=== PATIENT | male | born 1975 | race Caucasian/White ===

== ENCOUNTER 2017-11-17 09:19 | Day surgery (SDC) | payer OTHER, SELFPAY ==
[2017-11-17] VITALS (8 sets, daily range): BP systolic 91–116; BP diastolic 57–70; PULSE 49–70; RESP 16; TEMP 35.9–36.6; O2SAT 97–100; BMI 20.7
--- NOTE | 2017-11-17 09:27 | EKG12_ITS ---
Test Reason : PRE-OP Blood Pressure : / mmHG Vent. Rate : 073 BPM Atrial Rate : 073 BPM P-R Int : 136 ms QRS Dur : 084 ms QT Int : 370 ms P-R-T Axes : 062 068 054 degrees QTc Int : 407 ms Normal sinus rhythm Normal ECG Confirmed by JORJE SANCHEZ, ZANDRA ([id number]), content editor AFSANEH IBARRA ([id number]) on 11/24/2017 1:04:38 PM Referred By: Fan Montes Confirmed By:ZANDRA RECINOS MD
[2017-11-17 09:45] LABS: Hematocrit 42.2 % (40-54); Hemoglobin 13.7 g/dl (13.0-16.5); Mean Corp Hgb Conc 32.5 g/gl (32-36); Mean Corpuscular Hgb 33.3 pg (27.0-32.0); Mean Corpuscular Volume 102.4 fL (80-94); Mean Platelet Vol. 8.7 fl (6.2-12.0); Platelet Count 301 K/mm3 (150-450); RBC Distribution Width CV 11.5 % (11.6-14.6); Red Blood Count 4.12 M/mm3 (4.6-6.2); White Blood Count 7.4 K/mm3 (4.4-11.0)
[2017-11-17 09:46] LABS: Scan Indicated on CBC? Y/N NO
[2017-11-17 09:59] LABS: Anion Gap 5 (5-15); BUN 11 mg/dL (7-18); BUN/Creat Ratio 13.7 RATIO (10-20); Calcium,Total 9.1 mg/dL (8.5-10.1); Chloride 107 mmol/L (98-107); EST Glomerular Filtration Rate 113 mL/min (>60); Est Glom Filt Rate - Afr Amer 136 mL/min (>60); Estimated Creatinine Clearance 112.41 ml/min; Glucose 87 mg/dL (74-106); Sodium Level 141 mmol/L (136-145)
[2017-11-17] MEDS: Bupivacaine Mpf 0.5% 30 ML VIAL (10:19)
[2017-11-17] MEDS: Cefazolin 2 GM in 0.9% Normal Saline 100 ML IV (10:54)
--- NOTE | 2017-11-17 11:02 | PCM.DC.GS ---
Discharge Diet: Light diet - advance as tolerated - if you have questions about your diet instructions, please talk to you doctor. Discharge Activity: May Not Drive - for 1 week or while taking narcotic pain medicine. May shower in (days): 1 Lifting Restrictions: 10 pounds Call your doctor if your incision/area has: Continuous Slow Oozing, Sudden Increased Bleeding, Increased Pain/ Swelling, Increased Redness, Foul Smelling Discharge Call your doctor if you observe: Fever of 101 or Higher Suture Line Care: Avoid Pulling/Pushing, Avoid Pinching/Bending Additional Dressing/Incision Instructions:: Change or remove dressing in 4 days. Leave steri-strips in place for 1 week. Allergies/Adverse Reactions: Allergies No Known Allergies Allergy (Verified 11/11/17 10:46) Medications to take at Discharge NK [NK] 11/11/17 Primary Care Physician: Manolo Fabian MD [Primary Care Provider] - Please Follow Up With: Fan Montes MD - [phone] When: Further office appointments may be as needed.
--- NOTE | 2017-11-17 11:39 | RAD_ITS ---
STUDY: X-RAY CHEST REASON FOR EXAM: Male, 42 years old. Port placement. TECHNIQUE: Single AP portable view of the chest. COMPARISON: None. FINDINGS: A right-sided portacatheter has been placed. The tip is at the junction of the superior vena cava and right atrium. The lungs are clear and expanded. There is no demonstrated pleural abnormality. Normal size heart. Normal mediastinum and jasmin. Normal visualized pulmonary arteries. Normal visualized aortic arch and descending thoracic aorta. Normal visualized thoracic spine. Normal visualized ribs, clavicles, and shoulders. There is no demonstrated abnormality of the visualized soft tissue structures of the upper abdomen. RAD/CXR for Line Placement IMPRESSION: Of the right linda catheter is at the junction of the superior vena cava and right atrium. Electronically Signed: Juan Penn MD at 12:34 EDT Tel [phone], Service support ,
--- NOTE | 2017-11-17 11:44 | OP.PCM_ITS ---
Problem List (1) Rectal cancer Status: Acute Report of Operation Date of Procedure: 11/17/17 Pre-Operative Diagnosis: Rectal cancer Post-Operative Diagnosis: Same Surgery/Procedure Performed:: Right internal jugular 6 [place] PowerPort placement Description of Surgical Findings:: Timeout and informed consent was obtained. 42-year-old gent was taken to the operating room. Placed on the table. The right neck and chest were sterilely prepped and draped. Ancef 2 g given intravenous preoperatively. He underwent monitored anesthesia care. 1% lidocaine mixed 50-50 with 0.5% Marcaine was used as a local anesthetic. Under ultrasound guidance local was instilled in the right neck. Micropuncture needle was used to gain access to the right internal jugular vein. Seldinger wire advancement. Local was instilled down upon the chest wall. Transverse incision was created. Subtenons pocket was created with electrocautery. The tubing was tunneled from the chest to the neck site. Then the micropuncture sheath dilator was placed over the wire. 035 J-wire was inserted. Fluoroscopy demonstrated good positioning. The sheath dilator was placed over the wire. The dilator and wire were removed. The catheter was advanced to the sheath. The sheath was split. The catheter was positioned at the SVC atrial junction. It was amputated to length and connected to the port secured with a port attachment device. The port was placed in the pocket and secured there with interrupted 2-0 silk. The port site was closed with interrupted 3-0 Vicryl subdermal stitches. The neck was closed with interrupted 5-0 Vicryl subdermal stitches. Steri-Strips Telfa OpSite dressings applied. The port was accessed. It aspirated easily and it was flushed with 2 cc of heparinized saline. Sponge, instrument, needle counts were reported to the surgeon to be correct. Blood loss was minimal. He tolerated the procedure well was taken to the recovery area in satisfactory condition without apparent complication. Stat portable chest is pending. No apparent complications Fan Montes M.D., F.A.C.S. Type of Anesthesia:: Local MAC Anesthesiologist: Albertina Louis
== END 2017-11-17 13:15 | disposition home or self-care (01) ==
LOC: SDC 09:20 → AC 09:21
PROVIDERS: Family Provider Internal Medicine; PCP Internal Medicine; Visit Provider Surgery
PROC: (CPT 36571; principal; 2017-11-17 10:45)
DX: C20 Malignant neoplasm of rectum (principal); F17.200 Nicotine dependence, unspecified, uncomplicated; K21.9 Gastro-esophageal reflux disease without esophagitis; Z90.49 Acquired absence of other specified parts of digestive tract; Z87.442 Personal history of urinary calculi
CPT/HCPCS: 00532; 36571; 36415; 71045; 77001; 80048; 85027; 93005; J7120; C1788

== ENCOUNTER 2020-05-06 20:54 | Observation (INO) | payer OTHER, SELFPAY ==
[2020-05-06 20:55] VITALS: BP 134/80; PULSE 67; RESP 16; TEMP 36.2; O2SAT 99; BMI 24.0
--- NOTE | 2020-05-06 21:09 | CT_ITS ---
STUDY: CT ABDOMEN AND PELVIS WITH CONTRAST REASON FOR EXAM: Male, 44 years old. MID ABDOMEN PAIN AND CHILLS -- HX:GERD,RECTAL CANCER WITH RECTAL RESECTION AND COLOSTOMY RADIATION DOSAGE (If Supplied By Facility): CTDIvol = ( 13.88 ) mGy, DLP = ( 645.12 ) mGycm TECHNIQUE: Transaxial images were obtained from the dome of the diaphragm to the symphysis pubis without oral contrast. IV 100mL Isovue-370 was administered. Sagittal and coronal images were reconstructed. Individualized dose optimization techniques were used for this CT. COMPARISON: 06/10/2017 FINDINGS: Right lower lobe granuloma. The visualized portions of the heart are within normal limits. Normal liver. Normal gallbladder and extrahepatic biliary system. Granulomatous calcifications in the spleen. Normal pancreas. Normal bilateral adrenal glands. Normal right kidney. Normal left kidney. Distended stomach with air-fluid level. Dilated proximal small intestine with obstruction. Normal colon. The appendix is not visualized. Normal abdominal aorta. Normal inferior vena cava. Normal retroperitoneum. Normal urinary bladder. Mild pelvic fluid. There is a colostomy in the left anterior abdominal wall. Small fatty umbilical hernia. Normal osseous structures. CT/Abdomen/Pelvis W IV Cont ONLY IMPRESSION: Small bowel obstruction. There is a colostomy through the left anterior abdominal wall. Mild pelvic fluid. Electronically Signed: Lincoln Krishnamurthy DO at 23:04 EDT Tel [phone], Service support ,
--- NOTE | 2020-05-06 21:12 | ED.VIS.GEN ---
History of Present Illness Chief Complaint: Abd Pain Informant: Patient Narrative: Patient is a 44-year-old male with a past medical history of rectal cancer status post removal with colostomy who presents to the emergency department for midline abdominal pain. This has been present since noon today. Currently rates the pain as a 7 out of 10. He tried taking multiple doses of Pepcid for this which did not give any relief he denies ever experiencing this before in the past. No radiation of the symptoms to the back. He did get nauseous but no episodes of vomiting. No change in output from his stoma. He denies any urinary symptoms. He has had some intermittent chills but denies any known fever. No associated chest pain or shortness of breath. No other abdominal surgeries. Does not take any other medications. Past Medical History - Allergies and Home Meds Allergies/Adverse Reactions: Allergies No Known Allergies Allergy (Verified 05/31/18 13:04) Primary Care Physician: Manolo Fabian MD [Primary Care Provider] - Prior records reviewed: Yes Surgical History: - - Rectal cancer resection with colostomy Smoking Status: Current every day smoker Review of Systems All systems negative except as indicated General: Reports: Chills. Denies: Fever, Sweats Eyes: Denies: Visual changes - bilaterally, Diplopia ENT: Denies: Rhinorrhea, Sore throat Cardiovascular: Denies: Chest pain, Palpitations Respiratory: Denies: Dyspnea, Cough, Dyspnea on exertion Gastrointestinal: Reports: Abdominal pain, Nausea. Denies: Vomiting, Diarrhea, Melena, Hematochezia Genitourinary: Denies: Dysuria, Hematuria, Frequency Musculoskeletal: Denies: Back pain, Extremity Pain Skin: Denies: Rash, Wounds Neurological: Denies: Headache, Weakness, Numbness Physical Exam Vital Signs/Narrative: Vital Signs Temp Pulse Resp BP Pulse Ox 05/06/20 20:55 97.1 F L 67 16 134/80 H 99 Inital Vital Signs reviewed: Yes General: Well nourished, Well developed, No Acute Distress Head: Normocephalic, Atraumatic Eyes: Perrl, EOMI ENT: Moist mucous membranes, No rhinorrhea Neck: Supple, Nontender Cardiovascular: Regular rate, Regular rhythm, No murmurs Respiratory: No distress, CTA bilaterally, Chest nontender Abdomen: Soft, Nondistended, Normal bowel sounds, Tender - Midline tenderness to light and deep palpation. Stoma does appear healthy. Brown stool present in colostomy. Back: Nontender, Normal Inspection. Negative for: CVA tenderness Extremities: Nontender, No edema Skin: Normal color, No rash Neurological: Alert, Oriented x3, Normal Strength, Normal Sensation Psychological: Normal affect, Normal Mood Diagnostic/Tx/Re-eval - Medical Decision Making Patient presents to the emergency department for abdominal pain. He does have a history of colostomy. Upon arrival to the emergency department vital signs within normal limits. He does not appear in any acute distress. Will check basic lab work and CT scan of the abdomen/pelvis. We will give a dose of morphine for symptomatic treatment. Patient's lab work did not reveal any significant acute abnormality. CT scan of the abdomen/pelvis is currently pending. Patient signed out due to end of shift. Based on CT findings we will plan on disposition. He otherwise has been stable throughout ED stay. ED Disposition - Plan for ED Patient: Diagnosis: Abdominal pain Referrals: Manolo Fabian MD [Primary Care Provider] -
[2020-05-06] MEDS: 0.9% Normal Saline 1,000 ML 999 ML IV (21:34)
[2020-05-06] MEDS: Morphine 4 MG/ML Syringe IV ×2 (21:36→23:38)
[2020-05-06 21:48] LABS: Absolute Lymphocyte Count 0.56 X10^3/uL (0.83-4.51); Absolute Neutrophil Count 8.6 X10^3/uL (2.0-7.7); Basophil# 0.02 X10^3/uL; Basophil% 0.2 % (0-1); Eosinophil# 0.03 X10^3/uL; Eosinophils% 0.3 % (0-5); Hematocrit 44.2 % (40-54); Hemoglobin 15.1 g/dL (13.0-16.5); Lymphocyte # 0.56 X10^3/ul (4.0); Lymphocyte % 5.8 % (19-41); Mean Corp Hgb Conc 34.2 g/dL (32-36); Mean Corpuscular Hgb 32.1 pg (27.0-32.0); Mean Corpuscular Volume 93.8 fL (80-94); Mean Platelet Vol. 8.6 fl (6.2-12.0); Monocyte# 0.43 X10^3/uL; Monocyte% 4.5 % (0-10); NRBC Flagged by Analyzer 0 % (0-5); Neutrophil # 8.57 X10^3/uL (2.7-7.7); Neutrophil % 88.8 % (47-70); POSITIVE DIFFERENTIAL YES; Platelet Count 241 K/mm3 (150-450); RBC Distribution Width CV 11.4 % (11.6-14.6); RBC Distribution Width SD 39.5 fl (35.1-43.9); Red Blood Count 4.71 M/mm3 (4.6-6.2); White Blood Count 9.7 K/mm3 (4.4-11.0)
[2020-05-06 22:06] LABS: AST(SGOT) 13 U/L (15-37); Alanine Aminotransfer ALT/SGPT 20 U/L (16-61); Alkaline Phosphatase 82 U/L (45-117); Anion Gap 6 (5-15); BUN 15 mg/dL (7-18); BUN/Creat Ratio 16.5 RATIO (10-20); Calcium,Total 9.7 mg/dL (8.5-10.1); Chloride 105 mmol/L (98-107); Creatinine, Serum 0.91 mg/dL (0.70-1.30); EST Glomerular Filtration Rate 97 mL/min (>60); Est Glom Filt Rate - Afr Amer 117 mL/min (>60); Estimated Creatinine Clearance 108.07 ml/min; Globulin 3.9 g/dL (2.2-4.2); Glucose 130 mg/dL (74-106); Lipase 71 U/L (73-393); Potassium 3.6 mmol/L (3.5-5.1); Protein, Total 7.9 g/dL (6.4-8.2); Sodium Level 140 mmol/L (136-145)
[2020-05-06 22:13] LABS: Differential Indicated SCAN CRITERIA MET
[2020-05-06 22:14] LABS: Anisocytosis RARE; Macrocytosis RARE; Platelet Estimate ADEQUATE (ADEQ); Red Cell Morphology N CHROM NORMAL (NORM C&C)
[2020-05-06 22:24] VITALS: BP 124/84; PULSE 60; RESP 16; O2SAT 97
--- NOTE | 2020-05-06 23:24 | RAD_ITS ---
HISTORY: NG tube insertion. Small bowel obstruction EXAMINATION/TECHNIQUE: XR Abdomen 1 View: Portable COMPARISON: CT abdomen and pelvis 05/06/2020 FINDINGS: Single upright view of the lower chest and upper abdomen. The distal NG tube lies within the proximal stomach. The proximal side port of the tube lies near the GE junction and the tube should be advanced by 10 cm for more optimal positioning. RAD/Abdomen Single View (Portable) IMPRESSION: The distal NG tube lies within the proximal stomach. Recommend further advancement of the tube by 10 cm for more optimal tube positioning. at 0121 Reported and signed by: Robert Champagne MD Electronically Signed: Robert Champagne, at 1:20 EDT Tel , Service support ,
[2020-05-06 23:56] VITALS: BP 122/78; PULSE 62; RESP 16; TEMP 36.7; O2SAT 98
[2020-05-07] VITALS (7 sets, daily range): BP systolic 118–130; BP diastolic 68–74; PULSE 53–68; RESP 14–16; TEMP 36.4–37.1; O2SAT 96–98; BMI 23.3
[2020-05-07] MEDS: 0.9% Saline Lock 10 ML Syringe IV ×2 (01:35→10:16)
[2020-05-07] MEDS: Lactated Ringers 1,000 ML 130 ML IV ×2 (01:35→10:16)
[2020-05-07] MEDS: Morphine 4 MG/ML Syringe IV ×2 (01:36→05:51)
[2020-05-07] MEDS: BENZOCAINE/MENTHOL 1 LOZENGE MUCOUS MEM ×3 (05:52→10:16)
--- NOTE | 2020-05-07 06:00 | RAD_ITS ---
STUDY: X-RAY - ABDOMEN/PELVIS REASON FOR EXAM: Male, 44 years old. Small bowel obstruction. TECHNIQUE: Single AP view of the abdomen / pelvis. COMPARISON: Comparison is made with prior study dated May 06. FINDINGS: An orogastric tube is seen with the tip in the fundal portion of the stomach. There is an unremarkable bowel gas pattern. Moderate amount of fecal material is seen in the colon. The visualized liver, spleen and kidneys are grossly normal in size and morphology. IV contrast is seen within the urinary bladder and the bilateral collecting systems secondary to prior CT scan. Mild levoscoliosis. RAD/Abdomen Single View (Portable) IMPRESSION: Nonspecific bowel gas pattern. Moderate amount of fecal material is seen in the colon. Electronically Signed: Juan Penn, at 9:38 EDT , Service support ,
[2020-05-07 06:20] LABS: Absolute Lymphocyte Count 0.96 X10^3/uL (0.83-4.51); Absolute Neutrophil Count 4.5 X10^3/uL (2.0-7.7); Basophil# 0.02 X10^3/uL; Basophil% 0.3 % (0-1); Eosinophil# 0.07 X10^3/uL; Eosinophils% 1.1 % (0-5); Hematocrit 38.9 % (40-54); Hemoglobin 13.1 g/dL (13.0-16.5); Lymphocyte # 0.96 X10^3/ul (4.0); Lymphocyte % 15.7 % (19-41); Mean Corp Hgb Conc 33.7 g/dL (32-36); Mean Corpuscular Hgb 32.3 pg (27.0-32.0); Mean Corpuscular Volume 95.8 fL (80-94); Mean Platelet Vol. 8.4 fl (6.2-12.0); Monocyte# 0.56 X10^3/uL; Monocyte% 9.2 % (0-10); NRBC Flagged by Analyzer 0 % (0-5); Neutrophil # 4.49 X10^3/uL (2.7-7.7); Neutrophil % 73.5 % (47-70); Platelet Count 203 K/mm3 (150-450); RBC Distribution Width CV 11.7 % (11.6-14.6); RBC Distribution Width SD 40.8 fl (35.1-43.9); Red Blood Count 4.06 M/mm3 (4.6-6.2); White Blood Count 6.1 K/mm3 (4.4-11.0)
[2020-05-07 06:43] LABS: Anion Gap 5 (5-15); BUN 14 mg/dL (7-18); BUN/Creat Ratio 17.1 RATIO (10-20); Calcium,Total 8.6 mg/dL (8.5-10.1); Chloride 108 mmol/L (98-107); Creatinine, Serum 0.82 mg/dL (0.70-1.30); EST Glomerular Filtration Rate 109 mL/min (>60); Est Glom Filt Rate - Afr Amer 132 mL/min (>60); Estimated Creatinine Clearance 119.94 ml/min; Glucose 104 mg/dL (74-106); Potassium 3.8 mmol/L (3.5-5.1); Sodium Level 142 mmol/L (136-145)
--- NOTE | 2020-05-07 07:22 | RAD_ITS ---
PROCEDURE: SMALL BOWEL SERIES DATE OF EXAMINATION: 05/07/2020.. INDICATION: Male, 44 years old. History of small bowel obstruction. Prior rectal surgery. PHYSICIAN: Juan Penn M.D. FLUOROSCOPY TIME (if supplied): (0:01) minutes/seconds TECHNIQUE: Radiographic and fluoroscopic images were taken of the small intestine following the ingestion of GASTROGRAFIN. COMPARISON: None. FINDINGS: A preliminary supine KUB was obtained. There is an unremarkable bowel gas pattern. Large amount of fecal material is present throughout the colon. Phleboliths are present within the pelvis. A nasogastric tube is seen with the tip in the distal stomach. The osseous structures are normal. The patient orally ingested approximately 90 cc of GASTROGRAFIN. . Normal visualized fundus, body, and antrum of the stomach. Normal duodenal bulb, C-loop, and proximal jejunum. Normal visualized mucosal folds of the jejunum and ileum. There are no demonstrated dilatations, strictures, or masses of the small intestine. There is no mass displacement of the loops of small intestine. There is a normal motor pattern with barium reaching the colon within approximately 75 minutes minutes. Spot films under fluoroscopic observation demonstrated a normal terminal ileum and ileocecal valve. RAD/Small Bowel Series Only IMPRESSION: No evidence of small bowel obstruction at this time. Moderate amount of fecal material is seen in the colon. Electronically Signed: Juan Penn, at 9:57 EDT , Service support ,
--- NOTE | 2020-05-07 07:22 | PCM.HP.STD ---
History of Present Illness Date of Admission: 05/07/20 The patient is a 44 year old M presented to the ER due to abdominal pain and nausea. Patient has past medical history for rectal cancer status post proctoscopy and in colostomy at [facility] in 2018. Patient is also status post chemo and radiation. Patient states he has never had a bowel obstruction in the past. CT abdomen pelvis was consistent with a bowel obstruction with a dilated stomach and proximal small bowel, patient's colon did have a bit of stool in it as well. Patient had a normal white blood cell count. Patient had an NG placed in the ER which put out about a liter. Overnight patient only had 200 clearish out of his NG states his abdominal pain is a 1/10 currently when he came in it was 7/. Patient states he has had this colostomy on since Tuesday he does not reuse his bags and has not had much output since then. Patient states that sometimes he will go often (daily or multiple times in a day) other times he may not. Past Medical History Medical History: Medical History (Last Reviewed 05/23/18 @ 15:01 by Nury Alas) Sebaceous cyst (Acute) L72.3 Rectal cancer (Acute) C20 Back pain M54.9 Rectal cancer C20 Allergies No Known Allergies Allergy (Verified 05/31/18 13:04) Home Medications: Ambulatory Orders Medication Instructions Recorded Sildenafil Citrate [Viagra] 100 mg PO PRN PRN 05/07/20 Surgical History: Surgical History (Last Reviewed 05/23/18 @ 15:01 by Nury Alas) H/O colonoscopy Z98.890 06/2017 History of local excision of skin lesion Z98.890 scalp cyst removal History of rectal surgery Z98.890 09/2017 Hx of vasectomy Z98.52 2004 Surgical History: - - Rectal cancer resection with colostomy Psychiatric History: No pertinent psych hx Smoking Status: Current every day smoker Tobacco Use: Vapor Alcohol: Occasional - *Family History Maternal Family History: Family History (Last Reviewed 05/23/18 @ 15:01 by Nury Alas) Father Colon cancer Hypertension Arthritis History Items: No pertinent history Review of Systems Constitutional: Reports: Anorexia. Denies: Fever Eyes: Denies: Blurred vision HEENT: Denies: Difficulty Swallowing Cardiovascular: Denies: Chest Pain Respiratory: Denies: Cough Gastrointestinal: Reports: Abdominal Pain, Constipation, Nausea. Denies: Vomiting Genitourinary: Denies: Dysuria Skin: Denies: Pruritis Neurological: Denies: Balance problems Psychiatric: Denies: Anxiety, Depression Hematologic/ Lymphatic: Denies: Easy Bleeding VTE Information - Inpt Only VTE Present on Admission: Yes VTE Mechan Device Prophylaxis: SCD's Patient Problems: Active and Suspected Problems (Last Reviewed 05/23/18 @ 15:01 by Nury Alas) Abdominal pain (Acute) - Physical Exam Vitals/I&O's: Vital Signs Temp Pulse Resp BP Pulse Ox 97.8 F 59 L 16 118/68 98 05/07/20 05:36 05/07/20 05:36 05/07/20 05:41 05/07/20 05:36 05/07/20 05:36 Oxygen Delivery Method Room Air Weight: 162 lb 4.163 oz Body Mass Index (BMI) 23.3 Intake and Output for Last 24 Hours 05/05/20 05/06/20 05/07/20 23:59 23:59 23:59 Intake Total 1000 / 1000 60 / 60 Output Total 150 / 150 Balance 1000 / 1000 -90 / -90 General: Alert, Oriented x3, Cooperative, No apparent distress HEENT: Atraumatic, - - NG in place Lungs: Normal air movement Cardiovascular: Regular rate Abdomen: Soft, Non Tender, Non-Distended, - - Colostomy pink unable to see the entire thing as there is with stool over it, not much output. Extremities: No clubbing, No cyanosis, No edema Neurological: Cranial nerves II-XII grossly intact Psych/Mental Status: Normal Affect Laboratory Results 05/06/20 21:39: WBC 9.7, RBC 4.71, Hgb 15.1, Hct 44.2, MCV 93.8, MCH 32.1 H, MCHC 34.2, RDW Std Deviation 39.5, RDW Coeff of Chanel 11.4 L, Plt Count 241, MPV 8.6, Immature Gran % (Auto) 0.400, Neut % (Auto) 88.8 H, Lymph % (Auto) 5.8 L, Marion % (Auto) 4.5, Eos % (Auto) 0.3, Baso % (Auto) 0.2, Absolute Neuts (auto) 8.6 H, Absolute Lymphs (auto) 0.56 L, Nucleated RBC % 0, Differential Comment SEE COMMENT, Platelet Estimate ADEQUATE, RBC Morphology N CHROM, Anisocytosis RARE, Macrocytosis RARE 05/06/20 21:39: Sodium 140, Potassium 3.6, Chloride 105, Carbon Dioxide 29.0, Anion Gap 6, BUN 15, Creatinine 0.91, Estim Creat Clear Calc 108.07, Est GFR (MDRD) Af Amer 117, Est GFR (MDRD) Non-Af 97, BUN/Creatinine Ratio 16.5, Glucose 130 H, Calcium 9.7, Total Bilirubin 0.40, AST 13 L, ALT 20, Alkaline Phosphatase 82, Total Protein 7.9, Albumin 4.0, Globulin 3.9, Albumin/Globulin Ratio 1.0, Lipase 71 L 05/06/20 22:00: Urine Color Cancelled, Urine Clarity Cancelled, Urine pH Cancelled, Ur Specific [place] Cancelled, U Specif Grav (Refrac) Cancelled, Urine Protein Cancelled, Urine Glucose (UA) Cancelled, Urine Ketones Cancelled, Urine Occult Blood Cancelled, Urine Nitrite Cancelled, Urine Bilirubin Cancelled, Urine Urobilinogen Cancelled, Ur Leukocyte Esterase Cancelled, Urine RBC Cancelled, Urine WBC Cancelled, Ur Squamous Epith Cells Cancelled, Ur Transition Epith Cell Cancelled, Ur Renal Epithelial Cell Cancelled, Calcium Oxalate Crystal Cancelled, Uric Acid Crystals Cancelled, Triple Phos Crystals Cancelled, Other Crystals Cancelled, Amorphous Sediment Cancelled, Urine Bacteria Cancelled, Hyaline Casts Cancelled, Fine Granular Casts Cancelled, Coarse Granular Casts Cancelled, Waxy Casts Cancelled, RBC Casts Cancelled, WBC Casts Cancelled, Urine Mucus Cancelled, Urine Trichomonas Cancelled, Urine Yeast Cancelled 05/07/20 06:10: WBC 6.1, RBC 4.06 L, Hgb 13.1, Hct 38.9 L, MCV 95.8 H, MCH 32.3 H, MCHC 33.7, RDW Std Deviation 40.8, RDW Coeff of Chanel 11.7, Plt Count 203, MPV 8.4, Immature Gran % (Auto) 0.200, Neut % (Auto) 73.5 H, Lymph % (Auto) 15.7 L, Marion % (Auto) 9.2, Eos % (Auto) 1.1, Baso % (Auto) 0.3, Absolute Neuts (auto) 4.5, Absolute Lymphs (auto) 0.96, Nucleated RBC % 0 05/07/20 06:10: Sodium 142, Potassium 3.8, Chloride 108 H, Carbon Dioxide 29.0, Anion Gap 5, BUN 14, Creatinine 0.82, Estim Creat Clear Calc 119.94, Est GFR (MDRD) Af Amer 132, Est GFR (MDRD) Non-Af 109, BUN/Creatinine Ratio 17.1, Glucose 104, Calcium 8.6 Current Medications Lactated Ringer's () 1,000 mls @ 130 mls/hr IV .[id number] JACQUI Last Admin: 05/07/20 01:35 Dose: 130 mls/hr Documented by: Morphine Sulfate (Morphine 4 Mg/Ml Syringe) 2 - 3 mg IV Q2H PRN PRN PRN Reason: Pain Score 1-10 Last Admin: 05/07/20 05:51 Dose: 2 mg Documented by: Ondansetron HCl (Ondansetron 4 Mg/2 Ml Vial) 4 mg IV Q6H PRN PRN PRN Reason: NAUSEA Sodium Chloride (0.9% Saline Lock 10 Ml Syringe) 10 - 40 ml IV UD PRN PRN Reason: SALINE FLUSH Last Admin: 05/07/20 01:35 Dose: 10 ml Documented by: Throat Lozenges (Benzocaine/Menthol 1 Lozenge) 1 lozenge MUCOUS MEM Q1H PRN PRN PRN Reason: SORE THROAT Last Admin: 05/07/20 05:52 Dose: 1 lozenge Documented by: Assessment/Plan All Active Problems (Last Reviewed 05/23/18 @ 15:01 by Nury Alas) Abdominal pain (Acute) Sebaceous cyst (Acute) Rectal cancer (Acute) 44-year-old male with a bowel obstructions past medical history for rectal cancer status post a proctectomy with end colostomy 1. Continue n.p.o./IV fluids. Continue NG to low intermittent suction. 2. Plan for small bowel follow-through this morning. We will treat conservatively currently And await small bowel follow-through Miriam Bermudez M.D. Pager: [phone] [facility] [address] [place] [address], [facility], [address] [place] [id number] Office: [phone] Inpatient E&M: [id number] Init Hosp L2
[2020-05-07 12:24] LABS: Bacteria 0 SEEN /hpf (None Seen); Mucous, Urine 0 SEEN /hpf (<or=2+); Red Blood Cells-Urine 0 SEEN /hpf (0-5); Squamous Epithelial Cells - UA 0 SEEN /hpf (0-5); White Blood Cells 0 SEEN /hpf (0-5)
[2020-05-07 12:26] LABS: Color, Urine Yellow (Yellow); Glucose, Dipstick Normal (Normal); Ketone-Dipstick 5 mg/dl (Negative); Leukocyte Esterase-Dipstick Negative /ul (Negative); Nitrite-Dipstick Negative (Negative); Occult Blood-Urine Negative /ul (Negative); Protein-Dipstick 15 mg/dl (Negative); Specific Gravity, Urine 1.015 (1.002-1.030); Urine Bilirubin Dipstick Negative (Negative); Urine Clarity Clear (Clear); Urine Urobilinogen Normal (Normal); Urine pH 6.5 (5.0 - 8.0)
--- NOTE | 2020-05-07 14:09 | PN_ITS ---
Progress Note Patient small bowel follow-through did show contrast in the colon at 75 minutes. Patient did have stool in his bag. NG removed patient was started on Full liquid. Patient tolerates full is okay to go home. Patient no further question at this time. Miriam Bermudez M.D. Pager: [phone] [facility] [address] [place] [address], [address] [place] [id number] Office: [phone]
--- NOTE | 2020-05-07 14:09 | PCM.PN.BLA ---
Progress Note Patient small bowel follow-through did show contrast in the colon at 75 minutes. Patient did have stool in his bag. NG removed patient was started on Full liquid. Patient tolerates full is okay to go home. Patient no further question at this time. Miriam Bermudez M.D. Pager: [phone] [facility] [address] [place] [address], [address] [place] [id number] Office: [phone]
--- NOTE | 2020-05-07 14:14 | DCINST_ITS ---
Discharge Diet: Light diet - advance as tolerated Discharge Activity: Return to Normal Activity Allergies/Adverse Reactions: Allergies No Known Allergies Allergy (Verified 05/31/18 13:04) Medications to take at Discharge Sildenafil Citrate [Viagra] 100 mg PO PRN PRN 05/07/20 Primary Care Physician: Manolo Fabian MD [Primary Care Provider] - Test Results: Test results from this visit will be discussed in further detail at your follow- up appointment, if applicable. Proposed Discharge Date: 05/07/20
== END 2020-05-07 17:05 | disposition home or self-care (01) ==
LOC: ED 21:49 → MS3 05-07 00:51
PROVIDERS: Admitting Provider Surgery; Emergency Provider Emergency Medicine; PCP Internal Medicine; Visit Provider Surgery
DX: K56.609 Unspecified intestinal obstruction, unspecified as to partial versus complete obstruction (principal); Z85.048 Personal history of other malignant neoplasm of rectum, rectosigmoid junction, and anus; Z93.3 Colostomy status; F17.290 Nicotine dependence, other tobacco product, uncomplicated
CPT/HCPCS: 74018; 74177; 74250; 80048; 80053; 81001; 83690; 85025; 96361; 96374; 96376; 99218; 99285; J7030; J7120; Q9967; A4216; G0378

== ENCOUNTER 2020-11-05 18:18 | Emergency (ER) | payer OTHER, SELFPAY ==
[2020-05-07 00:28] VITALS: BMI 23.3
[2020-11-05 18:19] VITALS: BP 133/75; PULSE 123; RESP 15; TEMP 35.8; O2SAT 100; BMI 21.5
[2020-11-05 18:22] VITALS: BP 133/75; PULSE 123; RESP 15; TEMP 35.8; O2SAT 100
--- NOTE | 2020-11-05 18:44 | CT_ITS ---
We are attempting to reach an attending provider to discuss findings. An addendum with communication details will be sent when the communication is complete. STUDY: CT ABDOMEN AND PELVIS WITHOUT CONTRAST REASON FOR EXAM: Male, 45 years old. Pain RADIATION DOSAGE (If Supplied By Facility): DLP = ( 310.00 ) mGycm TECHNIQUE: Transaxial images were obtained from the dome of the diaphragm to the symphysis pubis without oral contrast, and without intravenous contrast. Sagittal and coronal images were reconstructed. Individualized dose optimization techniques were used for this CT. COMPARISON: CT abdomen pelvis 05/06/2020 FINDINGS: Evaluation of the abdominal viscera is limited in the absence of intravenous contrast. The visualized lung bases are clear. The visualized portions of the heart and pericardium are within normal limits. There are no calcified gallstones present. The liver demonstrates an unremarkable unenhanced appearance. The spleen is normal in size. The pancreas demonstrates an unremarkable unenhanced appearance. The adrenal glands are within normal limits. There are no obstructing renal stones. There is no hydronephrosis. There is prominent diffuse distention of the small bowel with air-fluid levels present. A left lower quadrant colostomy is present. The aorta is normal in caliber. There is no abdominal or pelvic free air, fluid collection or lymphadenopathy. Mild ascites is present. There are no destructive osseous lesions. CT/Abdomen/Pelvis without Cont IMPRESSION: Prominent diffuse distention of the small bowel with air-fluid levels, either distal obstruction or severe ileus. Mild ascites. Electronically Signed: Lauri Coe MD at 19:51 EDT Tel , Service support ,
--- NOTE | 2020-11-05 18:44 | ED.VIS.GI ---
HPI HPI - GI History of Present Illness Chief Complaint: Abd Pain Informant: patient and family Narrative Narrative: Patient presents with abdominal pain and decreased ostomy output. About a week ago he noticed some decreased output but then he went through 5 bags in 1 day and thought it improved. However, last night he started having more pain. Sharp around the area of his ostomy. He has had nausea without vomiting. He has had decreased output in the ostomy today and has had none throughout the day today. He has a history of rectal cancer status post chemo and radiation. This was performed at the [facility]. He was admitted in April 2020 for small bowel obstruction and had an NG tube placed at that time which resolved his bowel obstruction. He states that he has felt feverish but no documented temperature elevations at home. [facility] Medical History (Updated 11/05/20 @ 21:[address] Carlin aLke MD) Back pain Rectal cancer Rectal cancer Sebaceous cyst Home Medications NK 11/05/20 [History Last Taken Unknown] Allergy/AdvReac Type Severity Reaction Status Date / Time No Known Allergies Allergy Verified 11/05/20 18:22 Family History Father Colon cancer Hypertension Arthritis Surgical History H/O colonoscopy History of local excision of skin lesion History of rectal surgery Hx of vasectomy Social History Smoking Status: Current every day smoker second hand exposure: No alcohol intake: current alcohol intake frequency: a few times a week Alcohol type: hard liquor substance use type: does not use caffeine: Yes (3 cups) what type of physical activity do you participate in: none seatbelt use: always ROS ROS ED Constitutional Constitutional ED: Denies chills or fever(s) Eyes Eyes: Denies blurry vision or change in vision ENT ENT ED: Denies ear pain, rhinorrhea or sore throat Cardiovascular Cardiovascular: Denies chest pain or palpitations Respiratory/Chest Respiratory/Chest: Denies cough, dyspnea or sputum Gastrointestinal Gastrointestinal: Reports abdominal pain, nausea and other Details: Decreased ostomy output Genitourinary Genitourinary ED: Denies dysuria, hematuria or urinary frequency Musculoskeletal Musculoskeletal: Denies back pain or neck pain Integumentary Denies change in pigmentation or rash Neurologic Neurologic: Denies headache(s), numbness or weakness Psychiatric Psychiatric: Denies anxiety or depression Endocrine Endocrinology: Denies polydipsia or polyuria EXAM Physical Exam Const Vital Signs: 11/05/20 18:19 11/05/20 18:22 11/05/20 20:48 Temperature 96.5 F L 96.5 F L Temperature Source Temporal Temporal Pulse Rate 123 H 123 H 73 Respiratory Rate 15 15 16 Blood Pressure 133/75 H 133/75 H 113/67 Blood Pressure Mean 94 94 82 Pulse Ox 100 100 98 Oxygen Delivery Method Room Air Room Air Room Air Positive well nourished and well developed General Appearance ED: well developed and NAD HEENT Reports moist mucous membranes normocephalic and atraumatic; Negative for tenderness Eyes PERRL and EOMs intact bilaterally Neck supple and no JVD Chest Wall Chest: Negative for tenderness Resp normal respiratory effort and clear to auscultation bilaterally Effort and Inspection: Negative for respiratory distress Cardio regular rate and regular rhythm; Negative for no murmurs GI soft to palpation GI Narrative: There is an ostomy in the left lower quadrant. There is no output into the bag. Palpation: soft and tender other (Diffusely. There is no guarding or rebound tenderness) Back/Spine no CVA tenderness and no thoracic nor lumbar tenderness Cervical Spine: Negative for cervical spine tenderness Extremity normal to inspection General Extremety ED: Negative for tenderness Neuro oriented x3, CN's II-XII intact bilaterally and no sensory deficits noted Sensorium / Orientation: awake and alert Motor Exam: strength 5/5 throughout Psych mental status grossly normal Skin no rashes or lesions noted MDM MDM MDM Narrative Medical decision making narrative: Patient was given morphine and Zofran as well as IV fluids. Laboratory studies show a white blood cell count 13.0. Hemoglobin is 17.5. Glucose is 130. His liver enzymes and lipase are normal. CAT scan reveals a bowel obstruction with a transition point down in the pelvic area. I did discuss with Dr. Morrissey. An NG tube was placed. He feels that the patient should go back to the [facility] due to the possible complex nature of the surgery that he likely needs. The patient has had radiation and with a transition point in the pelvis with the important structures there he feels at the [facility] would be a better place for the patient to be transferred to. I discussed with Dr. Hunter and the patient will be transferred for surgical care. His NG tube was putting out dark fluid at this time. Lab Data Labs: Laboratory Results - last 24 hr 11/05/20 11/05/20 18:31 18:31 WBC 13.0 H RBC 5.44 Hgb 17.5 H Hct 51.7 MCV 95.0 H MCH 32.2 H MCHC 33.8 RDW Std Deviation 39.9 RDW Coeff of Chanel 11.5 L Plt Count 303 MPV 9.2 Immature Gran % (Auto) 0.300 Neut % (Auto) 80.9 H Lymph % (Auto) 10.6 L [place] % (Auto) 7.7 Eos % (Auto) 0.2 Baso % (Auto) 0.3 Absolute Neuts (auto) 10.5 H Absolute Lymphs (auto) 1.37 Nucleated RBC % 0 Sodium 139 Potassium 3.9 Chloride 101 Carbon Dioxide 31.0 Anion Gap 7 BUN 22 H Creatinine 1.12 Estim Creat Clear Calc 81.00 Est GFR (MDRD) Af Amer 92 Est GFR (MDRD) Non-Af 76 BUN/Creatinine Ratio 19.6 Glucose 130 H Calcium 10.0 Total Bilirubin 0.70 Direct Bilirubin 0.15 AST 11 L ALT 20 Alkaline Phosphatase 75 Total Protein 8.7 H Albumin 4.4 Globulin 4.3 H Lipase 77 Radiography Diagnostic Testing: Radiology Impression Abdomen/Pelvis CT 11/05/20 18:44 IMPRESSION: Prominent diffuse distention of the small bowel with air-fluid levels, either distal obstruction or severe ileus. Mild ascites. Electronically Signed: Lauri Coe MD at 19:51 EDT Tel , Service support , ADDENDUM: 11/05/202003 IMPRESSION: Prominent diffuse distention of the small bowel with air-fluid levels, either distal obstruction or severe ileus. Mild ascites. N.B. : The above information has been verbally conveyed by Lauri Coe MD to Dr. Carlin Lake MD, on 11/05/2020 19:57:14 (ET). Electronically Signed: Lauri Coe MD at 19:51 EDT Tel , Service support , KUB X-Ray 11/05/20 20:34 IMPRESSION: Enteric tube is coiled once in the fundus of the stomach extending well below the gastroesophageal junction. Electronically Signed: Caprice Long MD at 21:00 EDT , Service support , Critical Care Time Critical Care Time: Yes Critical care time (excluding procedures): 30-74 minutes, Discussing w/Patient &/or Family/[employer], Discussing w/Consultants, Arranging Admission or Transfer and Performing Direct Patient Care at Bedside Discharge Plan Triage Chief Complaint: Abd Pain ED Provider: Carlin Lake Dx/Rx/DC Orders Clinical Impression: SBO (small bowel obstruction), History of rectal cancer Prescriptions: No Action NK RF: 0 Primary Care Provider: Manolo Fabian Referrals: Manolo Fabian MD [Primary Care Provider] - Disposition Disposition: Transfer to another type HCF Discharge Location: [facility]
[2020-11-05] MEDS: Morphine 4 MG/ML Syringe IV (19:00)
[2020-11-05] MEDS: Ondansetron 4 MG/2 ML Vial IV (19:00)
[2020-11-05 19:49] LABS: Absolute Lymphocyte Count 1.37 X10^3/uL (0.83-4.51); Absolute Neutrophil Count 10.5 X10^3/uL (2.0-7.7); Basophil# 0.04 X10^3/uL; Basophil% 0.3 % (0-1); Eosinophil# 0.03 X10^3/uL; Eosinophils% 0.2 % (0-5); Hematocrit 51.7 % (40-54); Hemoglobin 17.5 g/dL (13.0-16.5); Lymphocyte # 1.37 X10^3/ul (0.83-4.51); Lymphocyte % 10.6 % (19-41); Mean Corp Hgb Conc 33.8 g/dL (32-36); Mean Corpuscular Hgb 32.2 pg (27.0-32.0); Mean Platelet Vol. 9.2 fl (6.2-12.0); Monocyte% 7.7 % (0-10); NRBC Flagged by Analyzer 0 % (0-5); Neutrophil # 10.48 X10^3/uL (2.7-7.7); Neutrophil % 80.9 % (47-70); Platelet Count 303 K/mm3 (150-450); RBC Distribution Width CV 11.5 % (11.6-14.6); RBC Distribution Width SD 39.9 fl (35.1-43.9); Red Blood Count 5.44 M/mm3 (4.6-6.2)
[2020-11-05 20:03] LABS: AST(SGOT) 11 U/L (15-37); Alanine Aminotransfer ALT/SGPT 20 U/L (16-61); Albumin, Serum 4.4 g/dL (3.2-5.0); Alkaline Phosphatase 75 U/L (45-117); Anion Gap 7 (5-15); BUN 22 mg/dL (7-18); BUN/Creat Ratio 19.6 RATIO (10-20); Bilirubin, Direct 0.15 mg/dL (0.00-0.30); Chloride 101 mmol/L (98-107); Creatinine, Serum 1.12 mg/dL (0.70-1.30); EST Glomerular Filtration Rate 76 mL/min (>60); Est Glom Filt Rate - Afr Amer 92 mL/min (>60); Globulin 4.3 g/dL (2.2-4.2); Glucose 130 mg/dL (74-106); Lipase 77 U/L (73-393); Potassium 3.9 mmol/L (3.5-5.1); Protein, Total 8.7 g/dL (6.4-8.2); Sodium Level 139 mmol/L (136-145)
--- NOTE | 2020-11-05 20:34 | RAD_ITS ---
STUDY: X-RAY - ABDOMEN/PELVIS REASON FOR EXAM: Male, 45 years old. NG Insertion TECHNIQUE: 1 view COMPARISON: Prior abdomen and pelvic CT exam of 11/05/2020 FINDINGS: Enteric tube is coiled in the fundus of the stomach well below the gastroesophageal junction. There is an unremarkable bowel gas pattern. There is no demonstrated free abdominal air. The visualized liver, spleen and kidneys are grossly normal in size and morphology. Normal soft tissue structures. Normal visualized osseous structures. RAD/Abdomen Single View (Portable) IMPRESSION: Enteric tube is coiled once in the fundus of the stomach extending well below the gastroesophageal junction. Electronically Signed: Caprice Long MD at 21:00 EDT , Service support ,
--- NOTE | 2020-11-05 20:37 | CON.PCM.SX_ITS ---
Assessment & Plan Assessment/Plan (1) SBO (small bowel obstruction): Status: Acute Code(s): K56.609 - Unspecified intestinal obstruction, unspecified as to partial versus complete obstruction Plan: The patient has had an APR at the [facility] in 2018. The patient had rectal cancer and did have radiation at the time. The patient's white count is elevated as is his hemoglobin indicating that he is dehydrated. The patient did have some mild ascites. The CT scan showed a small obstruction with apparent transition zone in the pelvis. The patient had a small bowel obstruction in April and again last week and presents again with another bowel obstruction. I believe that the patient has a likelihood of passing his small bowel obstruction with conservative treatment but I believe with 3 bowel obstructions in the last 6 months he is likely to recur. Given the fact that the patient has had APR as well as radiation and the transition zone appears to be very deep in the pelvis I would recommend transfer to tertiary care center where he had his surgery where experienced surgeons can lyse the scar tissue deep in the pelvis. I explained this to him that this would be a very difficult surgery and I would recommend that it be performed by a colorectal surgeon experienced in surgery in the pelvis. The patient understands and I will recommend transfer to tertiary care center. Michael Morrissey MD Pager: [facility] [address] [place] [address], [address] [place] [address] Office: HPI Consult Data Date of Consult: 11/06/20 HPI Narrative HPI Narrative: MAXX PARK, is a 45 M who presents to the emergency room with nausea vomiting abdominal pain. The patient had obstructive symptoms in April and this resolved conservatively. The patient then had pain and nausea and vomiting last week and then this resolved and he had several bowel movements and then on the weekend he started having nausea and vomiting again. He is complaining of diffuse abdominal pain and he has not had anything through his colostomy in 4 days. [facility] Medical History (Updated 11/06/20 @ 00:00 by Background Daemon) Back pain Rectal cancer Rectal cancer Sebaceous cyst Home Medications NK 11/05/20 [History Last Taken Unknown] Allergy/AdvReac Type Severity Reaction Status Date / Time No Known Allergies Allergy Verified 11/05/20 18:22 Family History Father Colon cancer Hypertension Arthritis Surgical History H/O colonoscopy History of local excision of skin lesion History of rectal surgery Hx of vasectomy Social History Smoking Status: Current every day smoker second hand exposure: No alcohol intake: current alcohol intake frequency: a few times a week Alcohol type: hard liquor substance use type: does not use caffeine: Yes (3 cups) what type of physical activity do you participate in: none seatbelt use: always ROS Constitutional Constitutional: Denies chills or fever(s) Cardiovascular Cardiovascular: Reports systems reviewed and no addt'l complaints, except as documented Respiratory/Chest Respiratory/Chest: Reports systems reviewed and no addt'l complaints, except as documented Gastrointestinal Gastrointestinal: Reports abdominal pain, bloating, nausea and vomiting Genitourinary Genitourinary: Denies change in urinary stream Musculoskeletal Musculoskeletal: Reports systems reviewed and no addt'l complaints, except as documented Integumentary Integumentary: Reports systems reviewed and no addt'l complaints, except as documented Endocrine Endocrinology: Reports systems reviewed and no addt'l complaints, except as documented Allergic/Immunologic Allergic/Immunologic: Reports systems reviewed and no addt'l complaints, except as documented Physical Exam Const alert and oriented x3 HEENT normocephalic Chest inspection of chest normal Resp normal respiratory effort Cardio Rate: regular rate Rhythm: regular rhythm GI GI Narrative: NG in place with dark output Inspection: abdominal distention Palpation: tender other (Diffuse); Negative for rebound tenderness present Extremity General Extremity: normal exam except as noted Skin no rashes or lesions noted Neuro CN's II-XII intact bilaterally Lab / Micro Data Result Diagrams: 11/05/20 18:31 11/05/20 18:31 Labs: Laboratory Results - last 24 hr 11/05/20 11/05/20 18:31 18:31 WBC 13.0 H RBC 5.44 Hgb 17.5 H Hct 51.7 MCV 95.0 H MCH 32.2 H MCHC 33.8 RDW Std Deviation 39.9 RDW Coeff of Chanel 11.5 L Plt Count 303 MPV 9.2 Immature Gran % (Auto) 0.300 Neut % (Auto) 80.9 H Lymph % (Auto) 10.[address] [place] % (Auto) 7.7 Eos % (Auto) 0.2 Baso % (Auto) 0.3 Absolute Neuts (auto) 10.5 H Absolute Lymphs (auto) 1.37 Nucleated RBC % 0 Sodium 139 Potassium 3.9 Chloride 101 Carbon Dioxide 31.0 Anion Gap 7 BUN 22 H Creatinine 1.12 Estim Creat Clear Calc 81.00 Est GFR (MDRD) Af Amer 92 Est GFR (MDRD) Non-Af 76 BUN/Creatinine Ratio 19.6 Glucose 130 H Calcium 10.0 Total Bilirubin 0.70 Direct Bilirubin 0.15 AST 11 L ALT 20 Alkaline Phosphatase 75 Total Protein 8.7 H Albumin 4.4 Globulin 4.3 H Lipase 77 Radiology Impression Abdomen/Pelvis CT 11/05/20 18:44 IMPRESSION: Prominent diffuse distention of the small bowel with air-fluid levels, either distal obstruction or severe ileus. Mild ascites. Electronically Signed: Lauri Coe MD at 19:51 EDT Tel , Service support , ADDENDUM: 11/05/202003 IMPRESSION: Prominent diffuse distention of the small bowel with air-fluid levels, either distal obstruction or severe ileus. Mild ascites. N.B. : The above information has been verbally conveyed by Lauri Coe MD to Dr. Carlin Lake MD, on 11/05/2020 19:57:14 (ET). Electronically Signed: Lauri Coe MD at 19:51 EDT Tel , Service support ,
[2020-11-05 20:48] VITALS: BP 113/67; PULSE 73; RESP 16; O2SAT 98
[2020-11-05] MEDS: 0.9% Normal Saline 1,000 ML 999 ML IV (20:51)
[2020-11-05 22:09] VITALS: BP 120/80; PULSE 61; RESP 14; O2SAT 98
[2020-11-05 23:05] VITALS: BP 120/80; PULSE 61; RESP 14; TEMP 36.6; O2SAT 99
== END 2020-11-05 22:41 | disposition other institution (70) ==
PROVIDERS: Emergency Provider Emergency Medicine; PCP Internal Medicine
DX: K56.609 Unspecified intestinal obstruction, unspecified as to partial versus complete obstruction (principal); F17.200 Nicotine dependence, unspecified, uncomplicated; Z85.048 Personal history of other malignant neoplasm of rectum, rectosigmoid junction, and anus
CPT/HCPCS: 74018; 74176; 80048; 80076; 83690; 85025; 96361; 96374; 96375; 99285; A4216; J2405